=== PATIENT | female | born 1960 | race Caucasian/White ===

== ENCOUNTER 2017-07-31 05:22 | Inpatient (IN) | payer OTHER ==
[2017-07-22 12:27] LABS: HEMATOCRIT 37.3 % (37.0-47.0); HEMOGLOBIN 12.6 gm/dL (12.0-15.0); MCH 30.6 pg (26.0-34.0); MCHC 33.8 g/dL (28.0-37.0); MCV 90.5 fL (80.0-100.0); RBC 4.12 mil/uL (4.20-5.00); RDW 12.7 % (10.5-14.5); WBC 10.4 thou/uL (4.0-11.0)
[2017-07-22 12:41] LABS: URINE BILIRUBIN NEGATIVE (Negative); URINE BLOOD NEGATIVE (Negative); URINE CLARITY CLEAR; URINE COLOR YELLOW; URINE GLUCOSE-RANDOM* NEGATIVE (Negative); URINE KETONES NEGATIVE (Negative); URINE NITRITE-REFLEX NEGATIVE (Negative); URINE PROTEIN (DIPSTICK) NEGATIVE (Negative); URINE SPECIFIC GRAVITY 1.025 (1.005-1.035); URINE UROBILINOGEN 0.2 E.U./dl (0.2-1.0)
[2017-07-22 12:43] LABS: URINE LEUKOCYTES-REFLEX 2+ (Negative)
[2017-07-22 12:51] LABS: ALBUMIN 3.9 g/dL (3.4-5.0); BACTERIA-REFLEX 1-9 Few /HPF (None Seen); CALCIUM 9.4 mg/dL (8.5-10.1); CASTS None Seen /LPF (None Seen); CREATININE 0.7 mg/dL (0.6-1.0); CRYSTALS None Seen /LPF (None Seen); POTASSIUM 3.7 mmol/L (3.5-5.1); SQUAMOUS 4-10 Moderate /LPF (0-3); URINE RBC None Seen /HPF (0-2); URINE WBC-REFLEX 6-15 Few /HPF (0-5)
[~2017-07-31] VITALS: Ht 167.6 cm; Wt 100.2 kg
--- NOTE | ~2017-07-31 | O ---
[address] [address] OPERATIVE REPORT Name: CIRO BISHOP Room #: 412-P ADM IN M.R.#: [id number] Admission: 07/31/17 Attend Phys: Francisco Piedra MD Discharge: Date of : 62 Report #: [id number] THIS REPORT FOR: //name// CC: Diana Connelley Francisco Piedra DATE OF SERVICE: 07/31/2017 SERVICE: Orthopedics. FACILITY: [facility]. SURGEON: Francisco Piedra MD PROGRAM ADVISOR SURGEON: None. ANESTHESIA: General with regional. PREOPERATIVE DIAGNOSIS: Left knee arthritis. POSTOPERATIVE DIAGNOSIS: Left knee arthritis. PROCEDURE: Left total knee arthroplasty with robotic-assisted computer navigation. COMPLICATIONS: None. DRAINS: None. SPECIMENS: None. ESTIMATED BLOOD LOSS: 100 mL. FINDINGS: 1. Severe arthritis. 2. Negro and Nephew size 6 Oxinium femoral component with size 6 Journey Oxinium component with size 5 tibial component and 10 mm high flexion poly insert and 35 mm patellar button. 3. Robotic-assisted computer navigation for balancing and implant position. HISTORY AND INDICATIONS: The patient is a 57-year-old female with severe case of left knee osteoarthritis that was affecting activities of daily living including her job as well as home life. She had conservative treatment with rest, activity modification, exercises, injections including viscosupplementation, oral medications, all of which failed and she eventually elected to undergo knee replacement. Risks, benefits, alternatives, and [address] [place] [address] OPERATIVE REPORT Name: CIRO BISHOP Room #: 412-P [facility] ..#: [id number] Admission: 07/31/17 Attend Phys: Francisco Piedra MD Discharge: Date of : 62 Report #: [id number] indication of surgery were discussed with her in detail. Risks include but not limited to pain, bleeding, infection, injury to nerves or blood vessels, persistent pain despite surgical intervention, failure of any repairs, reconstructions, progression of any preexisting chondral injury, failure of the prosthesis, fracture, need for further surgery including revision as well as complications related to anesthesia such as stroke, heart attack, pulmonary complications, thromboembolic disease and . Despite these risks, she wished to proceed. PROCEDURE IN DETAIL: After left leg was identified as the operative extremity in the preoperative holding area, the patient underwent placement of a single shot adductor canal block by anesthesia team. She was then taken to the operating room and placed supine on operating table. General anesthesia was induced without complication. She was padded appropriately. Prophylactic antibiotics were administered at appropriate time. Tourniquet was applied to left lower extremity. Total tourniquet time was 103 minutes. Left leg was prepped and draped in standard sterile fashion. Time-out procedure was performed. Standard anterior approach was made to the knee , exposing the deep layer and then a medial parapatellar arthrotomy was performed. The menisci and the osteophytes were resected as were the cruciate ligaments. The patella was everted. There was severe arthritis, particularly in the medial compartment. The Negro [email or web address] robotic-assisted computer navigation components were then placed into the femur and the tibia in the typical fashion and then the patient's current alignment and deformity was assessed with the robotics. The robotic system was then used to prepare the distal femur for the 4-in-1 cutting block and then the cutting block was placed after the computer navigation software was used to identify the appropriate position for the cutting block and implant sizes. A size 6 component was selected, which was confirmed by holding the trial to the femur with visual inspection. After the femur was prepared, the tibia was mapped and then the computer navigation was used for placement of the ideal position for the tibial cutting block and then the tibial cut was made in the typical fashion. The trial implants were placed and the patient was taken through full range of motion and the navigation assessment of balancing was utilized as well as direct intraoperative assessment. There was noted to be increased tightness medially compared to the lateral compartment, both in flexion and extension and so lamina spreaders were used and an 11 blade was then used to perform a medial release with a pie crusting technique , which provided improved balance within approximately 1 mm bilaterally. She was able to achieve full extension and then we prepared the patella in a typical fashion for 35 mm button. The knee was then irrigated after the Posterior osteophytes were removed. The first of [address] [address] OPERATIVE REPORT Name: CIRO BISHOP Room #: 412-P [facility] M.R.#: [id number] Admission: 07/31/17 Attend Phys: Francisco Piedra MD Discharge: Date of : 62 Report #: [id number] syringes of periarticular injection cocktail was injected in the posterior soft tissues and then the knee was thoroughly lavaged and dried and then the total knee replacement was cemented in a typical fashion. Excess cement was removed. The knee was placed in extension and the tourniquet was let down after the medial and lateral 30 mL injections were completed and then hemostasis was achieved. The final 30 mL were injected in the anterior soft tissues. We again took assessment of the gaps and the balancing and selected the final 10 mm polyethylene implant. This was snapped into position and then the knee was once again lavaged. The capsule layer was closed and the skin was closed with 2-0 Vicryl followed by running subcuticular 3-0 Monocryl as well as sterile dressing compression stocking. The patient was awakened from anesthesia and taken to recovery room in stable condition. There were no complications. All counts were reported as correct. <ELECTRONICALLY SIGNED> By: Francisco Piedra MD 07/31/17 1442 1055 1252 Francisco Piedra MD /nt
--- NOTE | ~2017-07-31 | EKG ---
[address] [address] ELECTROCARDIOGRAM REPORT Name: CIRO BISHOP Room #: PRE IN [facility]#: [id number] Admission: Attend Phys: Frnacisco Piedra MD Discharge: Date of : 62 Report #: [id number] THIS REPORT FOR: //name// [facility] Test Date: 2017-07-22 Test Time: 12:25:05 Pat Name: CIRO BISHOP Department: Room: Gender: F Regional Forester: lauri : 1960 Requested By: Francisco Piedra Order Number: [id number] MD: Celio Carroll Measurements Intervals [place] Rate: 77 P: 68 [place]: 209 QRS: 53 QRSD: 93 T: 29 QT: 403 QTc: 457 Interpretive Statements Sinus rhythm Borderline prolonged [place] interval No previous ECG available for comparison Electronically Signed On 07-23-2017 8:49:45 CDT by Celio Carroll [email or web address] <ELECTRONICALLY SIGNED> By: Celio Carroll MD, [facility] 07/23/17 0849 1225 1225 Celio Carroll MD, FACC /EPI
[~2017-07-31 05:22] MED LIST: CHANTIX1 MG PO; COZAAR100 MG PO; ESTRADIOL 1 MG T1 M1 PO; HYDROCHLOROTHIA25 M2 PO; IBUPROFEN 600600 M1 PO; TOPROL XL25 MG PO; TYLENOL PM EX-1 EACH PO; VITAMIN D1000 UNI1 PO
[2017-07-31 07:28] VITALS: BP 156/87
[2017-07-31 12:25] VITALS: BP 145/80
[2017-07-31 16:05] VITALS: BP 156/89
[2017-07-31 19:46] VITALS: BP 156/89
[2017-07-31 20:00] VITALS: BP 138/78
[2017-08-01] VITALS: BP 136/68
[2017-08-01 06:44] LABS: HEMATOCRIT 30.6 % (37.0-47.0); HEMOGLOBIN 10.3 gm/dL (12.0-15.0); MCHC 33.7 g/dL (28.0-37.0); RBC 3.33 mil/uL (4.20-5.00); RDW 13.2 % (10.5-14.5)
[2017-08-01 06:53] LABS: CALCIUM 8.4 mg/dL (8.5-10.1); CREATININE 0.6 mg/dL (0.6-1.0); POTASSIUM 3.8 mmol/L (3.5-5.1)
[2017-08-01 08:18] VITALS: BP 126/70
[2017-08-01 12:55] VITALS: BP 126/70
== END 2017-08-01 13:50 | disposition home or self-care (01) | DRG 470 ==
LOC: TBA 05:22 → PRE 05:41 → 4N 12:05 → PRE 12:37 → ENTRNSPT 08-01 13:46 → EDTRNSPTSTS 08-01 13:47 → 4N 08-01 13:50
PROVIDERS: Orthopaedic Surgery Sports Medicine
DX: M17.12 Unilateral primary osteoarthritis, left knee (principal); I10 Essential (primary) hypertension; Z79.899 Other long term (current) drug therapy
CPT/HCPCS: 10790; 50010; 50101; 50415; 50954; 51130; 51225; 51320; 51412; 51771; 52001; 52256; 53000; 53078; 53365; 56527; 56528; 57095; 57127; 62110; 62900; 70005

== ENCOUNTER 2017-09-10 05:27 | Day surgery (SDC) | payer OTHER ==
[~2017-09-10] VITALS: Ht 167.6 cm; Wt 95.7 kg
--- NOTE | ~2017-09-10 | O ---
[facility] [place] [address] OPERATIVE REPORT Name: CIRO BISHOP Room #: DEP [facility].#: [id number] Admission: 09/10/17 Attend Phys: Francisco Piedra MD Discharge: 09/10/17 Date of : 62 Report #: [id number] THIS REPORT FOR: //name// CC: Diana Piedra DATE OF SERVICE: 09/10/2017 SERVICE: Orthopedics. FACILITY: [facility]. SURGEON: Francisco Piedra MD SURFACE GRINDING MACHINE HAND: None. PREOPERATIVE DIAGNOSES: 1. Status post left total knee arthroplasty. 2. Left knee pain. 3. Left knee arthrofibrosis. POSTOPERATIVE DIAGNOSES: 1. Status post left total knee arthroplasty. 2. Left knee pain. 3. Left knee arthrofibrosis. PROCEDURE: Manipulation under anesthesia, left total knee arthroplasty. COMPLICATIONS: None. DRAINS: None. SPECIMENS: None. ANESTHESIA TYPE: General with regional. FINDINGS: 1. Preoperative range of motion 15-57 degrees, total arc of 42 degrees. 2. Postoperative range of motion 5-120 degrees, total arc 115 degrees. HISTORY OF PRESENT ILLNESS: The patient is a 57-year-old female who is several weeks status post left total knee arthroplasty, she had been doing excellent postoperatively, working with her physical therapy, but in the postoperative period, she developed an episode of intense back pain that led to admission to another facility where she had a workup for her back pain and ultimately was unable to perform physical therapy for a period of time, this led to some [facility] [address] [place] [address] OPERATIVE REPORT Name: CIRO BISHOP Room #: DEP [facility] M.R.#: [id number] Admission: 09/10/17 Attend Phys: Francisco Piedra MD Discharge: 09/10/17 Date of : 62 Report #: [id number] stiffness developing and after restoring her therapy program, she still demonstrated significant stiffness and we elected to move forward with manipulation under anesthesia as the best option for her. The risks, benefits, alternatives and indication for surgery were discussed with her in detail and her questions were answered. Risks do include fracture of the femur as well as recurrence, need for further procedures and continued stiffness as well as complications related to anesthesia. PROCEDURE IN DETAIL: After left lower extremity was correctly identified as the operative extremity, the patient underwent placement of a single shot regional nerve block by anesthesia team. She was then taken to the operating room and placed supine on operating table. General anesthesia with LMA was induced without complication. She was padded appropriately. A time-out procedure was performed. Left leg was then measured with a goniometer establishing the initial range of motion arc of 0/15/57 and then gently the hip and knee were flexed. Audible and palpable release of scar tissue was noted and knee flexion was achieved with a little difficulty primarily with mostly effort been spent over a duration of time allowing the soft tissues to relax and release. After this was completed, the leg was taken into extension and so additional evangelical of extension was achieved approximately 10 degrees and then she was flexed up again and taken through range of motion to ensure that a smooth range of motion was being achieved throughout. After this, we took final measurements, which registered the followin. The patient was awakened from anesthesia and taken to recovery room in stable condition. There were no complications and all counts were recorded as correct. <ELECTRONICALLY SIGNED> By: Francisco Piedra MD 09/11/17 2132 0957 1110 Francisco Piedra MD /nt
[~2017-09-10 05:27] MED LIST changes: +DIAZEPAM 10 MG10 M2 PO; +FLEXERIL PO; +MIRALAX17 GM PO; +OXYCODON-ACETA1 EAC1 PO; +STOOL SOFTENER100 MG PO
[2017-09-10 11:00] VITALS: BP 147/93
[2017-09-10 14:09] VITALS: BP 147/93
== END 2017-09-10 14:40 | disposition home or self-care (01) ==
LOC: OR 05:27 → TBA 05:28 → OR 14:40
DX: M17.12 Unilateral primary osteoarthritis, left knee (principal); M24.662 Ankylosis, left knee; I10 Essential (primary) hypertension; J45.909 Unspecified asthma, uncomplicated; G47.33 Obstructive sleep apnea (adult) (pediatric); Z87.891 Personal history of nicotine dependence; Z87.19 Personal history of other diseases of the digestive system; Z90.49 Acquired absence of other specified parts of digestive tract; Z96.652 Presence of left artificial knee joint; Z90.710 Acquired absence of both cervix and uterus; Z98.51 Tubal ligation status; Z85.44 Personal history of malignant neoplasm of other female genital organs; Z98.890 Other specified postprocedural states; Z79.899 Other long term (current) drug therapy
CPT/HCPCS: 50010; 50101; 62110; 62900; 64037; 64039; 70005